=== PATIENT | male | born 2000 | race African-American/Black ===

== ENCOUNTER 2022-05-10 08:22 | Emergency (ER) | payer MEDICAID ==
[~2022-05-10] VITALS: Ht 175.3 cm; Wt 102.1 kg
[2022-05-10 08:27] VITALS: BP 136/79
[2022-05-10 09:10] LABS: BASOPHILS % (AUTO) 0.3 % (0.0-2.0); EOSINOPHILS % (AUTO) 0.4 % (0.0-4.0); HEMATOCRIT 45.4 % (36-52); LYMPHOCYTES # (AUTO) 2.3 K/uL (2.0-11.5); LYMPHOCYTES % (AUTO) 28.4 % (20.5-51.1); MEAN CORPUSCULAR HEMOGLOBIN 29 pg (27-31); MEAN CORPUSCULAR HGB CONC 33 g/dL (33-37); MEAN CORPUSCULAR VOLUME 88.8 fL (80-94); MONOCYTES # (AUTO) 0.8 K/uL (0.8-1.0); NEUTROPHILS % (AUTO) 60.9 % (42.2-75.2); PLATELET COUNT (AUTO) 239 K/uL (140-450); RED BLOOD CELL COUNT(AUTO) 5.12 MIL/uL (4.20-6.10); RED CELL DISTRIBUTION WIDTH 13.2 % (11.6-13.7); WHITE BLOOD COUNT (AUTO) 8.3 K/uL (4.8-10.8)
--- NOTE | 2022-05-10 09:14 | NUR ---
pt encouraged to use restroom, unable to go at this time
--- NOTE | 2022-05-10 09:15 | NUR ---
22YO MALE C/O CONSISTENT SHARP/TIGHT 10/10 R UPPER ABDOMINAL PAIN X2 DAYS. PT STATES HAVING HERNIA SURGERY AT AND HAS PAIN AT SCAR SITE. PT ABDOMEN TENDER TO TOUCH , NON DISTENDED AND ACTIVE X4. PT DENIES N/V/D OR FEVERS. PT DENIES TAKING MEDICATION FOR PAIN.PT LAST BOWEL MOVEMENT WAS LAST NIGHT AND SOLID. PT AAOX4, NO VISIBLE DISTESS, RESPIRATIONS EVEN AND UNLABORED. NKA HX: HERNIA
--- NOTE | 2022-05-10 09:16 | NUR ---
PT TAKEN TO CT VIA TOYIN
--- NOTE | 2022-05-10 09:28 | NUR ---
PT BROUGHT BACK FROM CT VIA TOYIN
[2022-05-10 09:29] LABS: ALBUMIN 4.5 g/dL (3.4-5.0); ANION GAP 14.3 (8-16); CARBON DIOXIDE 27.2 mmol/L (21-32); CREATININE 1.1 mg/dL (0.6-1.3); POTASSIUM 3.5 mmol/L (3.5-5.1); TOTAL BILIRUBIN 0.8 mg/dL (0.0-1.0)
[2022-05-10] MEDS: KETOROLAC 30 MG/ML VIAL IM ONE (09:36)
--- NOTE | 2022-05-10 10:00 | NUR ---
PT REPORTS NEW ONSET OF 10/10 PAIN DUE TO "POSITIONING IN CT "
[2022-05-10] MEDS ORDERED: DICYCLOMINE HCL LIQUID 10 MG/5 ML UDC ONE (10:15)
[2022-05-10] MEDS ORDERED: ALUMINUM HYD/MAG/SIMETHICONE 30 ML UDC ONE (10:15)
[2022-05-10 10:22] LABS: APPEARANCE,URINE CLEAR (CLEAR); BILIRUBIN,URINE 1+ (NEGATIVE); BLOOD, URINE NEGATIVE (NEGATIVE); COLOR,URINE YELLOW (YELLOW); LEUKOCYTE ESTERASE ,URINE NEGATIVE (NEGATIVE); NITRITE, URINE NEGATIVE (NEGATIVE); UGLUCOSE NEGATIVE (NEGATIVE)
[2022-05-10] MEDS: FAMOTIDINE 20 MG TAB PO ONE (10:22)
[2022-05-10] MEDS: DICYCLOMINE HCL LIQUID 20 MG, ALUMINUM HYD/MAG/SIMETHICONE 30 ML, LIDOCAINE VISCOUS 2% ... PO ONE ×3 (10:25)
[2022-05-10 10:36] LABS: BARBITURATE, URINE NEGATIVE ng/ml (NEG <=200); BENZODIAZEPINE, URINE NEGATIVE ng/mL (NEG <=200); CANNABINOID, URINE POSITIVE ng/mL (NEG <=50); COCAINE, URINE NEGATIVE ng/mL (NEG <=300)
[2022-05-10 10:37] LABS: OPIATE, URINE NEGATIVE ng/mL (NEG <=2000); PHENCYCLIDINE SCREEN,URINE NEGATIVE ng/mL (NEG <=25)
[2022-05-10 11:07] LABS: RBC,URINE 0-5 /HPF (0-5)
[2022-05-10 11:08] LABS: WBC,URINE 0-5 /HPF (0-5)
[2022-05-10] MEDS ORDERED: FAMO-90 PO (11:14)
[2022-05-10] MEDS ORDERED: BEN10 PO (11:14)
[2022-05-10 11:27] VITALS: BP 141/74
--- NOTE | 2022-05-10 11:27 | NUR ---
Patient discharged with v/s stable. Written and verbal after care instructions FOR INDEGESTION given and explained. Patient alert, oriented and verbalized understanding of instructions. Ambulatory with steady gait. All questions addressed prior to discharge. ID band removed. Patient advised to follow up with PMD. Rx of BENTYL AND PEPCID given. Opportunity to ask questions provided and answered.
--- NOTE | 2022-05-10 11:28 | NUR ---
Chart checked and completed. The patient's care was reviewed and supervised by Katie Limon RN.
== END 2022-05-10 11:27 | disposition home or self-care (01) ==
LOC: MED 08:22
DX: R14.1 Gas pain (principal); F15.90 Other stimulant use, unspecified, uncomplicated; R03.0 Elevated blood-pressure reading, without diagnosis of hypertension; F12.90 Cannabis use, unspecified, uncomplicated; R00.0 Tachycardia, unspecified; Z79.899 Other long term (current) drug therapy
CPT/HCPCS: 36415; 74176; 80053; 80305; 81001; 83690; 85025; 96372; 99284; J1885